=== PATIENT | female | born 1995 | race Two or more races ===

== ENCOUNTER 2024-10-16 06:42 | Emergency (ER) | payer OTHER ==
[~2024-10-16] VITALS: Ht 162.6 cm; Wt 69.4 kg
[2024-10-16] MEDS ORDERED: DICLOFENAC SODI75 MG PO (09:28)
[2024-10-16] MEDS ORDERED: NORFLEX100MG PO (09:28)
[2024-10-16] MEDS ORDERED: DEXAMETHASONE SODIUM PHOSPHATE 4 MG/ML VIAL IM ONE (09:30)
[2024-10-16] MEDS ORDERED: KETOROLAC TROMETHAMINE 60 MG VIAL IM ONE (09:30)
[2024-10-16] MEDS ORDERED: ORPHENADRINE CITRATE 30 MG/ML AMPUL IM ONE (09:30)
== END 2024-10-16 10:09 | disposition home or self-care (01) ==
LOC: ER 06:42
DX: M54.50 Low back pain, unspecified (principal); M62.830 Muscle spasm of back; M62.838 Other muscle spasm